=== PATIENT | female | born 1940 | race Caucasian/White ===

== ENCOUNTER 2022-02-26 02:25 | Emergency (ER) | payer OTHER ==
[~2022-02-26] VITALS: Ht 152.4 cm; Wt 63.5 kg
[~2022-02-26 02:25] MED LIST: AMBIEN PAK5 MG; ARICEPT10 MG; DIGOXIN125 MCG; ENALAPRIL MALEA10 MG; GEMFIBROZIL600 MG; LANTUS100 U/ML; LEVOXYL125 MCG; NABUMETONE500 MG PO; OMEPRAZOLE20 MG; SIMVASTATIN40 MG
== END 2022-02-26 02:46 | disposition home or self-care (01) ==
LOC: ER 02:25
DX: L29.9 Pruritus, unspecified (principal); E11.9 Type 2 diabetes mellitus without complications; Z79.4 Long term (current) use of insulin

== ENCOUNTER 2022-06-15 00:47 | Inpatient (IN) | payer OTHER ==
[~2022-06-15] VITALS: Ht 149.9 cm; Wt 54.4 kg
[~2022-06-15 00:47] MED LIST changes: +CELEBREX100 MG PO
--- NOTE | 2022-06-15 01:30 | NUR ---
PTE VERBALIZA QUE GERMAIN ESTADO CON MAREOS DESDE DOREEN. PTE SE OBSERVA CON MAREOS. PTE SE LE REALIZA EKG. PTE SE OBSERVA A/O X4.
--- NOTE | 2022-06-15 03:29 | NUR ---
FEMINA ALERTA Y ORIENTADA X3 EVALUADA POR DR BOBBI [place]AN[place] [facility]. SE EDUCA A PTE SOBRE PROCEDIMIENTO Y REFIERE ENTENDER. SE COLECTAN MUESTRAS DE DANIEL BAJO MEDIDAS ASEPTICAS Y SE ADMINISTRA MEDICAMENTO.
--- NOTE | 2022-06-15 08:24 | NUR ---
SE RECIBE PTE ALERTA Y ORIENTADA EN BASHIR BAJA CON BARANDAS ELEVADAS POR SEGURIDAD. SE OBSERVA CON BUEN PATRON RESPIRATORIO. PTE CON H/L PATENTE. AREA DE VENOPUNCION YASMIN DE EDEMA Y ERITEMA. PEND RE-EVALUACION
[2022-06-20] MEDS ORDERED: CLOPIDOGREL BIS75 MG PO (15:14)
[2022-06-20] MEDS ORDERED: ARICEPT10 MG PO (15:14)
[2022-06-20] MEDS ORDERED: CARVEDILOL12.5 MG PO (15:15)
[2022-06-20] MEDS ORDERED: LIPITOR40 MG PO (15:15)
[2022-06-20] MEDS ORDERED: NIFEDIPINE ER60 MG PO (15:16)
[2022-06-20] MEDS ORDERED: LOSARTAN POTAS100 MG PO (15:16)
[2022-06-20] MEDS ORDERED: LEVOTHYROXINE125 MCG PO (15:17)
[2022-06-20] MEDS ORDERED: PANTOPRAZOLE SO40 MG PO (15:17)
[2022-06-20] MEDS ORDERED: LANOXIN125 MCG PO (15:19)
== END 2022-06-20 17:20 | disposition home or self-care (01) | DRG 77 ==
LOC: ER 00:47 → MEDJ 13:53
PROVIDERS: ADMIT Internal Medicine; ATTEND Internal Medicine
PROC: BW28ZZZ Computerized Tomography (CT Scan) of Head (ICD-10-PCS; principal; 2022-06-15)
PROC: BW38ZZZ Magnetic Resonance Imaging (MRI) of Head (ICD-10-PCS; 2022-06-15)
PROC: B24BZZZ Ultrasonography of Heart with Aorta (ICD-10-PCS; 2022-06-15)
PROC: B348ZZZ Ultrasonography of Bilateral Internal Carotid Arteries (ICD-10-PCS; 2022-06-15)
PROC: 4A12X4Z Monitoring of Cardiac Electrical Activity, External Approach (ICD-10-PCS; 2022-06-16)
DX: I67.4 Hypertensive encephalopathy (principal); I50.31 Acute diastolic (congestive) heart failure; N17.8 Other acute kidney failure; I13.0 Hypertensive heart and chronic kidney disease with heart failure and stage 1 through stage 4 chronic kidney disease, or unspecified chronic kidney disease; D64.9 Anemia, unspecified; E03.9 Hypothyroidism, unspecified; Z79.4 Long term (current) use of insulin; H81.90 Unspecified disorder of vestibular function, unspecified ear; Z20.822 Contact with and (suspected) exposure to COVID-19; E11.22 Type 2 diabetes mellitus with diabetic chronic kidney disease; N18.9 Chronic kidney disease, unspecified; G62.89 Other specified polyneuropathies
CPT/HCPCS: 70551

== ENCOUNTER 2023-02-16 13:41 | Emergency (ER) | payer OTHER ==
[~2023-02-16] VITALS: Ht 149.9 cm; Wt 57.2 kg
[~2023-02-16 13:41] MED LIST changes: +ARICEPT10 MG PO; +CARVEDILOL12.5 MG PO; +CLOPIDOGREL BIS75 MG PO; +LANOXIN125 MCG PO; +LEVOTHYROXINE125 MCG PO; +LIPITOR40 MG PO; +LOSARTAN POTAS100 MG PO; +NIFEDIPINE ER60 MG PO; +PANTOPRAZOLE SO40 MG PO
[2023-02-16] MEDS ORDERED: FOLIC ACID20 MG PO (14:16)
[2023-02-16] MEDS ORDERED: IPRAT-ALBUT 0.5-3 ML IH (18:49)
[2023-02-16] MEDS ORDERED: LASIX20 MG PO (18:49)
== END 2023-02-16 18:52 | disposition home or self-care (01) ==
LOC: ER 13:42
PROVIDERS: General Practice
DX: J44.9 Chronic obstructive pulmonary disease, unspecified (principal); E11.9 Type 2 diabetes mellitus without complications; Z79.4 Long term (current) use of insulin; I10 Essential (primary) hypertension; E03.9 Hypothyroidism, unspecified; Z88.2 Allergy status to sulfonamides; Z20.822 Contact with and (suspected) exposure to COVID-19
CPT/HCPCS: 36415; 71045; 82803; 93005; 94640; 96365; 96366; 99284; J2930; J3490

== ENCOUNTER 2023-12-05 16:37 | Inpatient (IN) | payer OTHER ==
[~2023-12-05] VITALS: Ht 149.9 cm; Wt 56.7 kg
[~2023-12-05 16:37] MED LIST changes: +FOLIC ACID20 MG PO; +IPRAT-ALBUT 0.5-3 ML IH; +LASIX20 MG PO
--- NOTE | 2023-12-05 17:09 | NUR ---
PACIENTE ALERTA Y ORIENTADA X 3. REFIERE 3 HERNANDEZ CON FATIGA, CANSANCIO Y MOLESTIA PARA RESPIRAR.
[2023-12-05] MEDS ORDERED: HUMULIN N100 UNIT/2 (17:20)
[2023-12-05] MEDS ORDERED: NIFEDIPINE20 MG (17:21)
[2023-12-05] MEDS ORDERED: OMEPRAZOLE MAGN20 MG (17:21)
[2023-12-05] MEDS ORDERED: NAMENDA XR7 MG PO (17:22)
[2023-12-05] MEDS ORDERED: LIPOFEN150 MG (17:22)
[2023-12-05] MEDS ORDERED: IPRATROPIUM/ALBUTEROL SULFATE 3 ML AMPUL.NEB IH SCH (18:37)
[2023-12-05] MEDS ORDERED: FUROsemide 20 MG TABLET PO STA (18:37)
[2023-12-05] MEDS ORDERED: FUROsemide 20 MG TABLET PO ONE (18:48)
--- NOTE | 2023-12-05 18:58 | NUR ---
PACIENTE EVALUADO POR DR.OCHOA [place]IEN [place] [facility], RN MORLAJIE EDUCA ACERCA DEL MISMO Y REFIRE ENTENDER. SE COLECTAN MUESTRAS DE LABORATORIO MEDIANTE MEDIDAS ASEPTICAS. SE ADMINISTRAN MEDICAMENTOS JUSTYN ORDEN MEDICA
[2023-12-05 19:18] LABS: HEMATOCRIT 30.2 % (36.0-45.00); HEMOGLOBIN 10.1 g/dL (12.0-15.00); MEAN CELL VOLUME 91.4 fL (80.00-100.00); MEAN CORPUSCULAR HEMOGLOBIN 30.7 pg (27.00-32.0); MEAN CORPUSCULAR HGB CONC 33.6 g/dl (32.0-36.0); PLATELET COUNT 231 K/uL (150-450); RED CELL DISTRIBUTION WIDTH 13.5 % (11.5-14.5)
[2023-12-05] MEDS ORDERED: IPRATROPIUM/ALBUTEROL SULFATE 3 ML AMPUL.NEB IH ONE (19:43)
[2023-12-05 19:44] LABS: ALBUMIN 3.3 gm/dL (3.4-5.0); BILIRUBIN TOTAL 0.3 mg/dL (0.3-1.2); CALCIUM 10.7 mg/dL (8.5-10.1); CREATININE SERUM 1.7 mg/dL (0.55-1.02); GFR 28.56; POTASSIUM 4.63 mEq/L (3.5-5.1); TOTAL PROTEIN 7.3 gm/dL (6.4-8.2)
[2023-12-05 20:02] LABS: ABG PH 7.398 (7.35-7.45); ABG PO2 71.1 mmHg (80-100); ABG pCO2 35.8 mmHg (35-45); BASE EXCESS -2.6 mmol/l; BICARBONATE 21.6 mmol/l (23-25); SaO2 93.9 %; Tco2 22.7 mmol/l
[2023-12-05 20:03] LABS: allen test SATISFACTORY; o2 21 %; puncture site RADIAL RIGHT
[2023-12-05] MEDS ORDERED: NITROGLYCERIN IN 5 % DEXTROSE 250 ML IV SCH (22:55)
[2023-12-05] MEDS ORDERED: FUROsemide 20 MG/2 ML VIAL IV SCH (22:55)
[2023-12-05] MEDS ORDERED: ACETAMINOPHEN 500 MG GEL..CAP PO PRN (23:00)
[2023-12-05] MEDS ORDERED: IPRATROPIUM BROMIDE 0.5 MG/2.5 ML AMPUL.NEB IH ONE (23:49)
[2023-12-06] MEDS ORDERED: IPRATROPIUM BROMIDE 0.5 MG/2.5 ML AMPUL.NEB IH SCH (01:00)
[2023-12-06] MEDS ORDERED: NITROGLYCERIN IN 5 % DEXTROSE 50 MG/250 ML BOTTLE IV ONE (01:56)
[2023-12-06] MEDS ORDERED: FUROsemide 20 MG/2 ML VIAL ONE (01:56)
[2023-12-06 03:04] LABS: D DIMER 1.93 MG/L; PARTIAL THROMBOPLASTIN TIME 23.9 SECONDS (22.0-34.0)
[2023-12-06 03:05] LABS: MAGNESIUM 2.1 mg/dL (1.8-2.4); PHOSPHOROUS 3.4 mg/dL (2.5-4.9)
[2023-12-06 03:51] LABS: INR 0.99; PROTHROMBIN TIME 10.4 SECONDS (9.0-11.5)
[2023-12-06] MEDS ORDERED: NITROGLYCERIN IN 5 % DEXTROSE 250 ML IV SCH (06:15)
[2023-12-06] MEDS ORDERED: IPRATROPIUM BROMIDE 0.5 MG/2.5 ML AMPUL.NEB IH ONE (08:42)
[2023-12-06] MEDS ORDERED: ENOXAPARIN SODIUM 40 MG/0.4 ML SYRINGE SUBCUTANEO SCH (09:00)
[2023-12-06] MEDS ORDERED: FAMOTIDINE/PF 20 MG in 0.9 % SODIUM CHLORIDE 8 ML IV PUSH SCH (09:00)
[2023-12-06] MEDS ORDERED: ATORVASTATIN CALCIUM 40 MG TABLET PO SCH (09:00)
[2023-12-06] MEDS ORDERED: MEMANTINE HCL 10 MG TABLET PO SCH (09:00)
[2023-12-06] MEDS ORDERED: INSULIN LISPRO 1,000 UNIT/10 ML UNITS SUBCUTANEO PRN (17:00)
[2023-12-06] MEDS ORDERED: DEXTROSE 50 % IN WATER 0.5 G/ML VIAL IV PRN (17:00)
[2023-12-06] MEDS ORDERED: DONEPEZIL HCL 10 MG TABLET PO SCH (17:00)
[2023-12-06] MEDS ORDERED: INSULIN LISPRO 1,000 UNIT/10 ML UNITS SUBCUTANEO ONE (18:21)
[2023-12-07 04:51] LABS: URINE BACTERIA 26.4 uL (0.0-1933); URINE WBC 12.3 uL (0.0-23.2)
[2023-12-07 04:55] LABS: PH,URINE 5.5 (5.0-8.0); URINE APPEARANCE Clear; URINE BILIRRUBIN Negative (NEGATIVE); URINE BLOOD Negative; URINE COLOR Yellow; URINE GLUCOSE Negative (NEGATIVE); URINE LEUKOCYTE Negative; URINE NITRATE Negative; URINE PROTEIN 30 (NEGATIVE); URINE UROBILINOGEN 0.2 E.U./dl
[2023-12-07 04:58] LABS: URINE EPITHELIAL CELLS 0.7 uL (0.0-38.8); URINE RBC 0.3 uL (0.0-20.8)
[2023-12-07] MEDS ORDERED: QUETIAPINE FUMARATE 25 MG TABLET PO STA (06:27)
[2023-12-07] MEDS ORDERED: ENOXAPARIN SODIUM 30 MG/0.3 ML SYRINGE SUBCUTANEO SCH (09:00)
[2023-12-07] MEDS ORDERED: FOLIC ACID 1 MG TABLET PO SCH (09:00)
[2023-12-07] MEDS ORDERED: CARVEDILOL 12.5 MG TABLET PO SCH (09:00)
[2023-12-07] MEDS ORDERED: LOSARTAN POTASSIUM 100 MG TABLET PO SCH (09:00)
[2023-12-07] MEDS ORDERED: PANTOPRAZOLE SODIUM 40 MG TABLET.DR PO SCH (09:00)
[2023-12-07] MEDS ORDERED: INSULIN NPH HUM/REG INSULIN HM 1,000 UNIT/10 ML UNITS SUBCUTANEO STA (09:32)
[2023-12-07] MEDS ORDERED: HALOPERIDOL LACTATE 5 MG/ML AMPUL IM PRN (13:30)
[2023-12-07] MEDS ORDERED: SODIUM CHLORIDE 0.45 % 1,000 ML IV SCH (13:45)
[2023-12-07] MEDS ORDERED: INSULIN NPH HUM/REG INSULIN HM 1,000 UNIT/10 ML UNITS SUBCUTANEO SCH (17:00)
[2023-12-07] MEDS ORDERED: DONEPEZIL HCL 10 MG TABLET PO SCH (17:00)
[2023-12-08] MEDS ORDERED: INSULIN NPH HUM/REG INSULIN HM 1,000 UNIT/10 ML UNITS SUBCUTANEO SCH (08:00)
[2023-12-08 08:02] LABS: BILIRUBIN TOTAL 0.44 mg/dL (0.3-1.2); CALCIUM 9.8 mg/dL (8.5-10.1); CREATININE SERUM 2.75 mg/dL (0.55-1.02); GFR 16.4; POTASSIUM 3.8 mEq/L (3.5-5.1)
[2023-12-08 08:19] LABS: HEMATOCRIT 26.5 % (36.0-45.00); HEMOGLOBIN 9.1 g/dL (12.0-15.00); MEAN CELL VOLUME 90.9 fL (80.00-100.00); MEAN CORPUSCULAR HEMOGLOBIN 31.1 pg (27.00-32.0); MEAN CORPUSCULAR HGB CONC 34.4 g/dl (32.0-36.0); PLATELET COUNT 177 K/uL (150-450); RED BLOOD COUNT 2.92 M/uL (4.00-6.00); RED CELL DISTRIBUTION WIDTH 13.2 % (11.5-14.5)
[2023-12-08] MEDS ORDERED: AMLODIPINE BESYLATE 5 MG TABLET PO SCH (12:00)
[2023-12-09] MEDS ORDERED: LEVOTHYROXINE SODIUM 100 MCG TABLET PO SCH (06:00)
[2023-12-09] MEDS ORDERED: FUROsemide 20 MG/2 ML VIAL IV SCH (12:00)
[2023-12-10 07:17] LABS: ALBUMIN 2.6 gm/dL (3.4-5.0); BILIRUBIN TOTAL 0.52 mg/dL (0.3-1.2); CALCIUM 9.8 mg/dL (8.5-10.1); CREATININE SERUM 2.02 mg/dL (0.55-1.02); GFR 23.41; GLOBULINA 3.3 G/DL (2.4-3.5); POTASSIUM 3.94 mEq/L (3.5-5.1); TOTAL PROTEIN 5.9 gm/dL (6.4-8.2)
== END 2023-12-11 04:41 | disposition home or self-care (01) | DRG 292 ==
LOC: ER 16:38 → SEC-K 22:59 → MEDI 12-06 18:53
PROVIDERS: General Practice; Internal Medicine Nephrology; ADMIT Specialist; ATTEND Specialist
PROC: B24BZZZ Ultrasonography of Heart with Aorta (ICD-10-PCS; 2023-12-05)
PROC: 4A12X4Z Monitoring of Cardiac Electrical Activity, External Approach (ICD-10-PCS; principal; 2023-12-06)
DX: I13.0 Hypertensive heart and chronic kidney disease with heart failure and stage 1 through stage 4 chronic kidney disease, or unspecified chronic kidney disease (principal); F02.82 Dementia in other diseases classified elsewhere, unspecified severity, with psychotic disturbance; I50.30 Unspecified diastolic (congestive) heart failure; J44.1 Chronic obstructive pulmonary disease with (acute) exacerbation; N17.9 Acute kidney failure, unspecified; I50.9 Heart failure, unspecified; E78.5 Hyperlipidemia, unspecified; N18.9 Chronic kidney disease, unspecified; E11.65 Type 2 diabetes mellitus with hyperglycemia; Z79.4 Long term (current) use of insulin; E11.22 Type 2 diabetes mellitus with diabetic chronic kidney disease; R41.82 Altered mental status, unspecified; D63.1 Anemia in chronic kidney disease; G30.9 Alzheimer's disease, unspecified; E03.9 Hypothyroidism, unspecified

== ENCOUNTER 2024-03-20 13:49 | Emergency (ER) | payer OTHER ==
[~2024-03-20] VITALS: Ht 152.4 cm; Wt 57.2 kg
[~2024-03-20 13:49] MED LIST changes: +HUMULIN N100 UNIT/2; +LIPOFEN150 MG; +NAMENDA XR7 MG PO; +NIFEDIPINE20 MG; +OMEPRAZOLE MAGN20 MG
[2024-03-20 15:31] LABS: HEMATOCRIT 31.5 % (36.0-45.00); HEMOGLOBIN 10.3 g/dL (12.0-15.00); MEAN CELL VOLUME 87.2 fL (80.00-100.00); MEAN CORPUSCULAR HEMOGLOBIN 28.6 pg (27.00-32.0); MEAN CORPUSCULAR HGB CONC 32.8 g/dl (32.0-36.0); PLATELET COUNT 208 K/uL (150-450); RED BLOOD COUNT 3.61 M/uL (4.00-6.00); RED CELL DISTRIBUTION WIDTH 14.8 % (11.5-14.5)
[2024-03-20 15:38] LABS: PARTIAL THROMBOPLASTIN TIME 24.9 SECONDS (22.0-34.0); PROTHROMBIN TIME 10.9 SECONDS (9.0-11.5)
[2024-03-20 15:44] LABS: CALCIUM 10.8 mg/dL (8.5-10.1); CREATININE SERUM 2.06 mg/dL (0.55-1.02); GFR 22.89; POTASSIUM 4.44 mEq/L (3.5-5.1)
== END 2024-03-20 16:57 | disposition home or self-care (01) ==
LOC: ER 13:51
PROVIDERS: Emergency Medicine
DX: R07.89 Other chest pain (principal); Z20.822 Contact with and (suspected) exposure to COVID-19; Z88.2 Allergy status to sulfonamides; I10 Essential (primary) hypertension; E11.9 Type 2 diabetes mellitus without complications; Z79.4 Long term (current) use of insulin

== ENCOUNTER 2024-03-24 11:10 | Inpatient (IN) | payer OTHER ==
[~2024-03-24] VITALS: Ht 149.9 cm; Wt 54.4 kg
[2024-03-24 11:57] LABS: HEMATOCRIT 27.6 % (36.0-45.00); HEMOGLOBIN 9.2 g/dL (12.0-15.00); MEAN CELL VOLUME 88.4 fL (80.00-100.00); MEAN CORPUSCULAR HEMOGLOBIN 29.6 pg (27.00-32.0); MEAN CORPUSCULAR HGB CONC 33.5 g/dl (32.0-36.0); PLATELET COUNT 268 K/uL (150-450); RED BLOOD COUNT 3.13 M/uL (4.00-6.00); RED CELL DISTRIBUTION WIDTH 14.5 % (11.5-14.5)
[2024-03-24 12:08] LABS: CALCIUM 10.6 mg/dL (8.5-10.1); CREATININE SERUM 1.97 mg/dL (0.55-1.02); GFR 24.1; POTASSIUM 4.44 mEq/L (3.5-5.1)
[2024-03-24] MEDS ORDERED: 0.9 % SODIUM CHLORIDE 1,000 ML IV SCH ×2 (13:15→18:45)
[2024-03-24 17:35] LABS: PH,URINE 6.5 (5.0-8.0); URINE APPEARANCE Clear; URINE BILIRRUBIN Negative (NEGATIVE); URINE BLOOD Negative; URINE COLOR Yellow; URINE KETONE Negative (NEGATIVE); URINE LEUKOCYTE Negative; URINE NITRATE Negative; URINE UROBILINOGEN 0.2 E.U./dl
[2024-03-24 17:39] LABS: URINE WBC 3.3 uL (0.0-23.2)
[2024-03-24 17:57] LABS: URINE EPITHELIAL CELLS 0.7 uL (0.0-38.8); URINE GLUCOSE >=1000 MG/DL (NEGATIVE); URINE PROTEIN 100 (NEGATIVE); URINE RBC 1.9 uL (0.0-20.8)
[2024-03-24] MEDS ORDERED: ASPIRIN 81 MG TAB.CHEW PO SCH (18:53)
[2024-03-24] MEDS ORDERED: ACETAMINOPHEN 500 MG GEL..CAP PO PRN (19:00)
[2024-03-24 20:33] LABS: MAGNESIUM 2.4 mg/dL (1.8-2.4); PHOSPHOROUS 3.1 mg/dL (2.5-4.9)
[2024-03-24 20:59] LABS: INR 0.98; PARTIAL THROMBOPLASTIN TIME 23.3 SECONDS (22.0-34.0); PROTHROMBIN TIME 10.7 SECONDS (9.0-11.5)
[2024-03-24] MEDS ORDERED: CARVEDILOL 12.5 MG TABLET PO SCH (21:00)
[2024-03-24 21:07] VITALS: BP 127/95
[2024-03-24 21:09] VITALS: O2SAT 98
[2024-03-24 22:40] VITALS: BP 155/78
[2024-03-25] VITALS (7 sets, daily range): BP systolic 128–185; BP diastolic 66–89; O2SAT 95–99
[2024-03-25] MEDS ORDERED: LEVOTHYROXINE SODIUM 125 MCG TABLET PO SCH (06:00)
[2024-03-25] MEDS ORDERED: MEMANTINE HCL 5 MG TABLET PO SCH (09:00)
[2024-03-25] MEDS ORDERED: LOSARTAN POTASSIUM 100 MG TABLET PO SCH (09:00)
[2024-03-25] MEDS ORDERED: FAMOTIDINE/PF 20 MG in 0.9 % SODIUM CHLORIDE 8 ML IV PUSH SCH (09:00)
[2024-03-25] MEDS ORDERED: NIFEDIPINE 30 MG TAB.SA.OSM PO SCH (09:00)
[2024-03-25] MEDS ORDERED: DONEPEZIL HCL 10 MG TABLET PO SCH (17:00)
[2024-03-25] MEDS ORDERED: hydrALAZINE HCL 20 MG VIAL IV PRN (17:45)
[2024-03-25] MEDS ORDERED: LORazepam 0.5 MG TABLET PO PRN (19:30)
[2024-03-26] VITALS (7 sets, daily range): BP systolic 133–148; BP diastolic 60–67; O2SAT 93–98
[2024-03-26 08:16] LABS: HEMATOCRIT 27.7 % (36.0-45.00); HEMOGLOBIN 9.1 g/dL (12.0-15.00); MEAN CELL VOLUME 88.7 fL (80.00-100.00); MEAN CORPUSCULAR HEMOGLOBIN 29.2 pg (27.00-32.0); PLATELET COUNT 269 K/uL (150-450); RED BLOOD COUNT 3.13 M/uL (4.00-6.00); RED CELL DISTRIBUTION WIDTH 14.8 % (11.5-14.5)
[2024-03-26] MEDS ORDERED: CLOPIDOGREL BISULFATE 75 MG TABLET PO SCH (09:00)
[2024-03-26 09:05] LABS: ALBUMIN 2.4 gm/dL (3.4-5.0); BILIRUBIN TOTAL 0.44 mg/dL (0.3-1.2); CREATININE SERUM 1.49 mg/dL (0.55-1.02); GFR 33.26; GLOBULINA 3.4 G/DL (2.4-3.5); POTASSIUM 4.75 mEq/L (3.5-5.1); TOTAL PROTEIN 5.8 gm/dL (6.4-8.2)
[2024-03-27] VITALS (7 sets, daily range): BP systolic 133–145; BP diastolic 66–76; O2SAT 93–98
[2024-03-28] VITALS (8 sets, daily range): BP systolic 121–154; BP diastolic 65–74; O2SAT 94–97
[2024-03-28] MEDS ORDERED: RINGERS SOLUTION,LACTATED 1,000 ML IV SCH (14:00)
[2024-03-29 01:05] VITALS: O2SAT 96
[2024-03-29 02:28] VITALS: BP 109/68; O2SAT 100
[2024-03-29 05:47] LABS: HEMATOCRIT 26.1 % (36.0-45.00); MEAN CELL VOLUME 86.8 fL (80.00-100.00); MEAN CORPUSCULAR HGB CONC 34.3 g/dl (32.0-36.0); PLATELET COUNT 287 K/uL (150-450); RED BLOOD COUNT 3.01 M/uL (4.00-6.00); RED CELL DISTRIBUTION WIDTH 14.6 % (11.5-14.5)
[2024-03-29 05:53] VITALS: O2SAT 97
[2024-03-29 06:23] LABS: ALBUMIN 2.4 gm/dL (3.4-5.0); BILIRUBIN TOTAL 0.35 mg/dL (0.3-1.2); CALCIUM 9.9 mg/dL (8.5-10.1); CREATININE SERUM 1.51 mg/dL (0.55-1.02); GFR 32.75; GLOBULINA 3.5 G/DL (2.4-3.5); POTASSIUM 4.42 mEq/L (3.5-5.1); TOTAL PROTEIN 5.9 gm/dL (6.4-8.2)
[2024-03-29 06:33] LABS: MEAN CORPUSCULAR HEMOGLOBIN 29.9 pg (27.00-32.0)
[2024-03-29 09:10] VITALS: BP 119/70; O2SAT 97
== END 2024-03-29 13:18 | disposition designated cancer center or children's hospital (05) | DRG 65 ==
LOC: ER 11:10 → MEDJ 19:25 → MEDI 03-28 14:01
PROVIDERS: Emergency Medicine; General Practice; Internal Medicine Nephrology; ADMIT Internal Medicine; ATTEND Internal Medicine
PROC: 4A12X4Z Monitoring of Cardiac Electrical Activity, External Approach (ICD-10-PCS; principal; 2024-03-24)
PROC: B030ZZZ Magnetic Resonance Imaging (MRI) of Brain (ICD-10-PCS; 2024-03-24)
PROC: B020ZZZ Computerized Tomography (CT Scan) of Brain (ICD-10-PCS; 2024-03-24)
PROC: B246ZZZ Ultrasonography of Right and Left Heart (ICD-10-PCS; 2024-03-24)
PROC: B345ZZZ Ultrasonography of Bilateral Common Carotid Arteries (ICD-10-PCS; 2024-03-24)
PROC: B348ZZZ Ultrasonography of Bilateral Internal Carotid Arteries (ICD-10-PCS; 2024-03-24)
DX: I63.81 Other cerebral infarction due to occlusion or stenosis of small artery (principal); F02.811 Dementia in other diseases classified elsewhere, unspecified severity, with agitation; G81.91 Hemiplegia, unspecified affecting right dominant side; N17.9 Acute kidney failure, unspecified; G30.8 Other Alzheimer's disease; I12.9 Hypertensive chronic kidney disease with stage 1 through stage 4 chronic kidney disease, or unspecified chronic kidney disease; E11.22 Type 2 diabetes mellitus with diabetic chronic kidney disease; N18.9 Chronic kidney disease, unspecified; E03.9 Hypothyroidism, unspecified; Z88.2 Allergy status to sulfonamides; Z74.01 Bed confinement status; Z79.4 Long term (current) use of insulin
CPT/HCPCS: 70544

== ENCOUNTER 2024-04-23 14:31 | Inpatient (IN) | payer OTHER ==
[~2024-04-23] VITALS: Ht 152.4 cm; Wt 149.7 kg
[2024-04-23] MEDS ORDERED: CLOPIDOGREL BIS75 MG PO (14:56)
[2024-04-23] MEDS ORDERED: 0.9 % SODIUM CHLORIDE 1,000 ML IV STA (15:51)
[2024-04-23] MEDS ORDERED: PIPERACILLIN/TAZOBACTAM SODIUM 3.375 GM VIAL IV ONE (17:00)
[2024-04-23 17:07] LABS: INR 1.08; PROTHROMBIN TIME 11.7 SECONDS (9.0-11.5)
[2024-04-23 17:17] LABS: ALBUMIN 2.3 gm/dL (3.4-5.0); BILIRUBIN TOTAL 0.41 mg/dL (0.3-1.2); BILIRUBIN,CONJUGATED 0.16 mg/dL (0.0-0.2); BILIRUBIN,UNCONJUGATED 0.25 mg/dL (0.0-0.6); CALCIUM 9.8 mg/dL (8.5-10.1); CREATININE SERUM 1.84 mg/dL (0.55-1.02); GFR 26.07; HEMATOCRIT 26.8 % (36.0-45.00); HEMOGLOBIN 8.8 g/dL (12.0-15.00); MEAN CELL VOLUME 85.9 fL (80.00-100.00); MEAN CORPUSCULAR HEMOGLOBIN 28.2 pg (27.00-32.0); MEAN CORPUSCULAR HGB CONC 32.8 g/dl (32.0-36.0); PLATELET COUNT 181 K/uL (150-450); POTASSIUM 4.75 mEq/L (3.5-5.1); RED BLOOD COUNT 3.12 M/uL (4.00-6.00); RED CELL DISTRIBUTION WIDTH 15.5 % (11.5-14.5); TOTAL PROTEIN 6.3 gm/dL (6.4-8.2)
[2024-04-23 17:34] LABS: ABG PH 7.374 (7.35-7.45); ABG PO2 192.7 mmHg (80-100); ABG pCO2 27.4 mmHg (35-45); BASE EXCESS -7.8 mmol/l; BICARBONATE 15.6 mmol/l (23-25); SaO2 99.6 %; Tco2 16.5 mmol/l
[2024-04-23 17:35] LABS: allen test SATISFACTORY; puncture site RADIAL RIGHT
[2024-04-23 17:38] LABS: FIBRINOGEN 467 mg/dL (187.0-446.0); PARTIAL THROMBOPLASTIN TIME 25.4 SECONDS (22.0-34.0)
[2024-04-23 17:40] LABS: URINE APPEARANCE Cloudy; URINE BILIRRUBIN Negative (NEGATIVE); URINE BLOOD Negative; URINE COLOR Yellow; URINE GLUCOSE Negative (NEGATIVE); URINE KETONE Negative (NEGATIVE); URINE LEUKOCYTE Trace; URINE NITRATE Negative; URINE UROBILINOGEN 0.2 E.U./dl
[2024-04-23 17:40] LABS: D DIMER > 35.20 MG/L
[2024-04-23 17:40] LABS: o2 32 %
[2024-04-23 17:43] LABS: URINE WBC 14.6 uL (0.0-23.2)
[2024-04-23 17:59] LABS: URINE BACTERIA > 9821.5 uL (0.0-1933); URINE CAST 0.76 uL (0.0-1.40); URINE PROTEIN 100 (NEGATIVE); URINE RBC 1.3 uL (0.0-20.8)
[2024-04-23] MEDS ORDERED: FUROsemide 20 MG/2 ML VIAL IV SCH (23:22)
[2024-04-23] MEDS ORDERED: CEFTRIAXONE SODIUM 2,000 MG in 0.9 % SODIUM CHLORIDE 100 ML IV SCH (23:26)
[2024-04-23] MEDS ORDERED: INSULIN LISPRO 1,000 UNIT/10 ML UNITS SUBCUTANEO PRN (23:30)
[2024-04-23] MEDS ORDERED: DEXTROSE 50 % IN WATER 0.5 G/ML DISP.SYRIN IV PRN (23:30)
[2024-04-23] MEDS ORDERED: ACETAMINOPHEN 500 MG GEL..CAP PO PRN (23:30)
[2024-04-24 02:13] VITALS: BP 114/64; O2SAT 97
[2024-04-24 05:14] VITALS: BP 103/64; O2SAT 97
[2024-04-24] MEDS ORDERED: LEVOTHYROXINE SODIUM 125 MCG TABLET PO SCH (06:00)
[2024-04-24] MEDS ORDERED: FAMOTIDINE/PF 20 MG in 0.9 % SODIUM CHLORIDE 8 ML IV PUSH SCH (09:00)
[2024-04-24] MEDS ORDERED: CARVEDILOL 12.5 MG TABLET PO SCH (09:00)
[2024-04-24] MEDS ORDERED: CLOPIDOGREL BISULFATE 75 MG TABLET PO SCH (09:00)
[2024-04-24] MEDS ORDERED: ENOXAPARIN SODIUM 40 MG/0.4 ML SYRINGE SUBCUTANEO SCH (09:00)
[2024-04-24] MEDS ORDERED: LOSARTAN POTASSIUM 25 MG TABLET PO SCH (09:00)
[2024-04-24 09:56] VITALS: BP 108/70; O2SAT 97
[2024-04-24] MEDS ORDERED: 0.9 % SODIUM CHLORIDE 1,000 ML IV SCH (12:00)
[2024-04-24 14:47] LABS: PARTIAL THROMBOPLASTIN TIME 21.5 SECONDS (22.0-34.0); PROTHROMBIN TIME 10.9 SECONDS (9.0-11.5)
[2024-04-24] MEDS ORDERED: DONEPEZIL HCL 10 MG TABLET PO SCH (17:00)
[2024-04-24 19:28] VITALS: BP 127/73; O2SAT 100
[2024-04-24] MEDS ORDERED: ENOXAPARIN SODIUM 60 MG/0.6 ML SYRINGE SUBCUTANEO SCH (21:00)
[2024-04-25 01:18] VITALS: BP 122/66; O2SAT 99
[2024-04-25] MEDS ORDERED: VITAMIN B COMPLEX/LYSINE 1 ML ML PO SCH (09:00)
[2024-04-25 09:49] VITALS: BP 140/69; O2SAT 95
[2024-04-25] MEDS ORDERED: SODIUM CHLORIDE 0.45 % 1,000 ML IV SCH (14:45)
[2024-04-25 15:19] VITALS: O2SAT 100
[2024-04-25] MEDS ORDERED: ASPIRIN 81 MG TAB.CHEW PO SCH (17:00)
[2024-04-25] MEDS ORDERED: SIMVASTATIN 40 MG TABLET PO SCH (17:00)
[2024-04-25] MEDS ORDERED: LEVALBUTEROL HCL 1.25 MG/3 ML SOLUTION IH SCH (17:00)
[2024-04-25] MEDS ORDERED: SUCRALFATE 1 G TABLET PO SCH (17:00)
[2024-04-25] MEDS ORDERED: LOSARTAN/HYDROCHLOROTHIAZIDE 1 UDTAB TABLET PO SCH (17:00)
[2024-04-25 17:08] VITALS: O2SAT 100
[2024-04-25 17:57] VITALS: BP 144/78; O2SAT 100
[2024-04-25 19:32] VITALS: O2SAT 100
[2024-04-25 20:17] LABS: ABG PH 7.423 (7.35-7.45); ABG PO2 145.3 mmHg (80-100); ABG pCO2 25.7 mmHg (35-45); BASE EXCESS -6.1 mmol/l; BICARBONATE 16.4 mmol/l (23-25); SaO2 99.2 %; Tco2 17.2 mmol/l
[2024-04-25 20:18] LABS: allen test SATISFACTORY; o2 52 %; puncture site RADIAL RIGHT
[2024-04-26] VITALS (7 sets, daily range): BP systolic 106–151; BP diastolic 68–88; O2SAT 97–100
[2024-04-26 08:24] LABS: ALBUMIN 2.2 gm/dL (3.4-5.0); CALCIUM 9.8 mg/dL (8.5-10.1); CREATININE SERUM 1.42 mg/dL (0.55-1.02); GFR 35.16; MAGNESIUM 1.9 mg/dL (1.8-2.4); PHOSPHOROUS 2.7 mg/dL (2.5-4.9); POTASSIUM 4.02 mEq/L (3.5-5.1)
[2024-04-26 08:40] LABS: HEMATOCRIT 26.4 % (36.0-45.00); MEAN CELL VOLUME 83.1 fL (80.00-100.00); MEAN CORPUSCULAR HEMOGLOBIN 28.2 pg (27.00-32.0); MEAN CORPUSCULAR HGB CONC 33.9 g/dl (32.0-36.0); PLATELET COUNT 217 K/uL (150-450); RED BLOOD COUNT 3.18 M/uL (4.00-6.00); RED CELL DISTRIBUTION WIDTH 15.5 % (11.5-14.5)
[2024-04-26] MEDS ORDERED: SOD FERRIC GLUC COMPLX/SUCROSE 125 MG in 0.9 % SODIUM CHLORIDE 100 ML IV SCH (09:00)
[2024-04-26] MEDS ORDERED: Cyanocobalamin/Mecobalamin 1 TAB.SL SL SCH (09:00)
[2024-04-27] VITALS (9 sets, daily range): BP systolic 118–150; BP diastolic 70–75; O2SAT 84–99
[2024-04-27 13:56] LABS: ABG PH 7.426 (7.35-7.45); ABG PO2 142.6 mmHg (80-100); ABG pCO2 27.2 mmHg (35-45)
[2024-04-27 13:57] LABS: BASE EXCESS -5.2 mmol/l; BICARBONATE 17.5 mmol/l (23-25); SaO2 99.2 %; Tco2 18.3 mmol/l; allen test SATISFACTORY; o2 36 %; puncture site RADIAL RIGHT
[2024-04-28] VITALS (8 sets, daily range): BP systolic 120–147; BP diastolic 60–85; O2SAT 96–100
[2024-04-28 06:55] LABS: ALBUMIN 2.1 gm/dL (3.4-5.0); CALCIUM 9.6 mg/dL (8.5-10.1); CREATININE SERUM 1.36 mg/dL (0.55-1.02); GFR 36.95; PHOSPHOROUS 2.1 mg/dL (2.5-4.9); POTASSIUM 3.6 mEq/L (3.5-5.1)
[2024-04-28] MEDS ORDERED: MEGESTROL ACETATE 400 MG/10 ML BLIST PACK PO SCH (09:00)
[2024-04-29] VITALS (8 sets, daily range): BP systolic 123–158; BP diastolic 64–66; O2SAT 90–100
[2024-04-29 05:08] LABS: HEMATOCRIT 24.1 % (36.0-45.00); MEAN CELL VOLUME 83.3 fL (80.00-100.00); MEAN CORPUSCULAR HGB CONC 33.6 g/dl (32.0-36.0); PLATELET COUNT 244 K/uL (150-450); RED CELL DISTRIBUTION WIDTH 15.5 % (11.5-14.5)
[2024-04-29 05:32] LABS: HEMOGLOBIN 8.1 g/dL (12.0-15.00); MEAN CORPUSCULAR HEMOGLOBIN 27.9 pg (27.00-32.0)
[2024-04-29 05:49] LABS: ALBUMIN 2.1 gm/dL (3.4-5.0); BILIRUBIN TOTAL 0.22 mg/dL (0.3-1.2); CALCIUM 9.3 mg/dL (8.5-10.1); CREATININE SERUM 1.21 mg/dL (0.55-1.02); GFR 42.29; GLOBULINA 3.6 G/DL (2.4-3.5); MAGNESIUM 1.7 mg/dL (1.8-2.4); POTASSIUM 3.46 mEq/L (3.5-5.1); TOTAL PROTEIN 5.7 gm/dL (6.4-8.2)
[2024-04-29 06:10] LABS: C-REACTIVE PROTEIN 5.87 MG/DL (0.00-0.29); PHOSPHOROUS 1.7 mg/dL (2.5-4.9)
[2024-04-29] MEDS ORDERED: NAPH,MB-DB/K PH,MBDB 1 PKT PACKET PO SCH (17:00)
[2024-04-30] VITALS (9 sets, daily range): BP systolic 131–159; BP diastolic 69–76; O2SAT 96–100
[2024-04-30] MEDS ORDERED: FUROsemide 40 MG/4 ML VIAL IV SCH (08:45)
[2024-04-30 10:13] LABS: INR 1.07
[2024-04-30 10:15] LABS: PROTHROMBIN TIME 11.6 SECONDS (9.0-11.5)
[2024-05-01] VITALS (9 sets, daily range): BP systolic 144–185; BP diastolic 75–97; O2SAT 96–98
[2024-05-01 06:11] LABS: HEMATOCRIT 29.4 % (36.0-45.00); MEAN CELL VOLUME 85.3 fL (80.00-100.00); MEAN CORPUSCULAR HEMOGLOBIN 28.6 pg (27.00-32.0); MEAN CORPUSCULAR HGB CONC 33.5 g/dl (32.0-36.0); PLATELET COUNT 279 K/uL (150-450); RED BLOOD COUNT 3.45 M/uL (4.00-6.00); RED CELL DISTRIBUTION WIDTH 15.8 % (11.5-14.5)
[2024-05-01 06:24] LABS: HEMOGLOBIN 9.9 g/dL (12.0-15.00)
[2024-05-01 11:59] LABS: COL EPI 171 SECONDS (82-175)
[2024-05-01] MEDS ORDERED: IOVERSOL 320 MG/ML - 50 ML VIAL IV ONE (19:30)
[2024-05-01] MEDS ORDERED: CHLORHEXIDINE GLUCONATE 120 ML BOTTLE TOP ONE (19:30)
[2024-05-01] MEDS ORDERED: LIDOCAINE HCL 1% 10ML VIAL IJ ONE (19:30)
[2024-05-02] VITALS (9 sets, daily range): BP systolic 136–144; BP diastolic 75–76; O2SAT 95–99
[2024-05-02 06:38] LABS: HEMATOCRIT 30.2 % (36.0-45.00); HEMOGLOBIN 10.4 g/dL (12.0-15.00); MEAN CELL VOLUME 84.1 fL (80.00-100.00); MEAN CORPUSCULAR HGB CONC 34.5 g/dl (32.0-36.0); PLATELET COUNT 296 K/uL (150-450); RED BLOOD COUNT 3.59 M/uL (4.00-6.00); RED CELL DISTRIBUTION WIDTH 16.1 % (11.5-14.5)
[2024-05-02 07:17] LABS: ALBUMIN 2.1 gm/dL (3.4-5.0); BILIRUBIN TOTAL 0.37 mg/dL (0.3-1.2); CALCIUM 9.9 mg/dL (8.5-10.1); CREATININE SERUM 1.16 mg/dL (0.55-1.02); GFR 44.4; POTASSIUM 4.2 mEq/L (3.5-5.1); TOTAL PROTEIN 6.1 gm/dL (6.4-8.2)
[2024-05-02] MEDS ORDERED: MEGESTROL ACETATE 400 MG/10 ML BLIST PACK PO SCH (20:30)
[2024-05-03] VITALS (9 sets, daily range): BP systolic 133–153; BP diastolic 76–80; O2SAT 94–97
[2024-05-04] VITALS (8 sets, daily range): BP systolic 137–146; BP diastolic 73–77; O2SAT 95–99
[2024-05-05] VITALS (9 sets, daily range): BP systolic 140–148; BP diastolic 60–77; O2SAT 90–98
[2024-05-05 06:13] LABS: HEMATOCRIT 27.7 % (36.0-45.00); HEMOGLOBIN 9.4 g/dL (12.0-15.00); MEAN CELL VOLUME 86.2 fL (80.00-100.00); MEAN CORPUSCULAR HEMOGLOBIN 29.1 pg (27.00-32.0); MEAN CORPUSCULAR HGB CONC 33.8 g/dl (32.0-36.0); PLATELET COUNT 282 K/uL (150-450); RED BLOOD COUNT 3.21 M/uL (4.00-6.00)
[2024-05-05 07:06] LABS: CALCIUM 9.9 mg/dL (8.5-10.1); CREATININE SERUM 1.09 mg/dL (0.55-1.02); GFR 47.71; POTASSIUM 4.25 mEq/L (3.5-5.1)
[2024-05-05 08:00] LABS: PHOSPHOROUS 1.9 mg/dL (2.5-4.9)
[2024-05-05] MEDS ORDERED: POTASSIUM PHOS,M-BASIC-D-BASIC 3 MM/ML VIAL IV NR (09:00)
[2024-05-05 12:09] LABS: ABG PH 7.432 (7.35-7.45); ABG PO2 86.5 mmHg (80-100); ABG pCO2 28.5 mmHg (35-45); BASE EXCESS -4.1 mmol/l; BICARBONATE 18.6 mmol/l (23-25); SaO2 96.8 %; Tco2 19.5 mmol/l
[2024-05-05 12:10] LABS: o2 21 %
[2024-05-05 12:11] LABS: allen test SATISFACTORY; puncture site RADIAL RIGHT
[2024-05-06 03:01] VITALS: BP 150/82; O2SAT 96
[2024-05-06 06:06] VITALS: O2SAT 95
[2024-05-06 06:09] LABS: HEMATOCRIT 27.7 % (36.0-45.00); HEMOGLOBIN 9.2 g/dL (12.0-15.00); MEAN CORPUSCULAR HEMOGLOBIN 28.8 pg (27.00-32.0); MEAN CORPUSCULAR HGB CONC 33.1 g/dl (32.0-36.0); PLATELET COUNT 272 K/uL (150-450); RED BLOOD COUNT 3.18 M/uL (4.00-6.00); RED CELL DISTRIBUTION WIDTH 16.9 % (11.5-14.5)
[2024-05-06 07:14] LABS: ALBUMIN 2.1 gm/dL (3.4-5.0); BILIRUBIN TOTAL 0.25 mg/dL (0.3-1.2); CALCIUM 9.9 mg/dL (8.5-10.1); CREATININE SERUM 1.09 mg/dL (0.55-1.02); GFR 47.71; GLOBULINA 3.8 G/DL (2.4-3.5); MAGNESIUM 1.5 mg/dL (1.8-2.4); PHOSPHOROUS 2.2 mg/dL (2.5-4.9); POTASSIUM 4.51 mEq/L (3.5-5.1); TOTAL PROTEIN 5.9 gm/dL (6.4-8.2)
[2024-05-06 08:25] VITALS: BP 149/78; O2SAT 97
[2024-05-06 10:02] VITALS: O2SAT 92
[2024-05-06 13:10] VITALS: O2SAT 97
[2024-05-06] MEDS ORDERED: NAPH,MB-DB/K PH,MBDB 1 PKT PACKET PO STA (14:54)
[2024-05-06] MEDS ORDERED: MAGNESIUM CHLORIDE 70 MG TABLET.DR PO STA (14:55)
[2024-05-06] MEDS ORDERED: APIXABAN 2.5 MG TABLET PO SCH (17:00)
[2024-05-06 17:02] VITALS: O2SAT 97
== END 2024-05-06 18:04 | DRG 689 ==
LOC: ER 14:31 → MEDJ 23:29 → SEC-K 23:29 → MEDJ 04-24 02:30
PROVIDERS: General Practice; Internal Medicine; Internal Medicine Infectious Disease; Internal Medicine Nephrology; Internal Medicine Pulmonary Disease; Radiology Vascular & Interventional Radiology; ADMIT Internal Medicine; ATTEND Internal Medicine
PROC: BW24YZZ Computerized Tomography (CT Scan) of Chest and Abdomen using Other Contrast (ICD-10-PCS; 2024-04-24)
PROC: B54DZZZ Ultrasonography of Bilateral Lower Extremity Veins (ICD-10-PCS; 2024-04-25)
PROC: B345ZZZ Ultrasonography of Bilateral Common Carotid Arteries (ICD-10-PCS; 2024-04-25)
PROC: 4A12X4Z Monitoring of Cardiac Electrical Activity, External Approach (ICD-10-PCS; 2024-04-25)
PROC: 30233N1 Transfusion of Nonautologous Red Blood Cells into Peripheral Vein, Percutaneous Approach (ICD-10-PCS; 2024-04-30)
PROC: 06H03DZ Insertion of Intraluminal Device into Inferior Vena Cava, Percutaneous Approach (ICD-10-PCS; principal; 2024-05-01 20:15)
DX: N39.0 Urinary tract infection, site not specified (principal); I26.99 Other pulmonary embolism without acute cor pulmonale; I63.9 Cerebral infarction, unspecified; N17.9 Acute kidney failure, unspecified; K92.2 Gastrointestinal hemorrhage, unspecified; E87.20 Acidosis, unspecified; I82.401 Acute embolism and thrombosis of unspecified deep veins of right lower extremity; I50.9 Heart failure, unspecified; G30.9 Alzheimer's disease, unspecified; F02.80 Dementia in other diseases classified elsewhere, unspecified severity, without behavioral disturbance, psychotic disturbance, mood disturbance, and anxiety; I10 Essential (primary) hypertension; E03.9 Hypothyroidism, unspecified; R09.02 Hypoxemia; D64.9 Anemia, unspecified; E11.9 Type 2 diabetes mellitus without complications; Z79.4 Long term (current) use of insulin; I25.10 Atherosclerotic heart disease of native coronary artery without angina pectoris

== ENCOUNTER → 2024-09-18 08:28 | Outpatient (CLI) | payer OTHER | END | disposition home or self-care (01) | LOC: NUCLEAR 08:28 | PROVIDERS: ATTEND Internal Medicine Pulmonary Disease | DX: I26.99 Other pulmonary embolism without acute cor pulmonale (principal) | CPT/HCPCS: 78582; A9540; A9567 ==

== ENCOUNTER 2024-09-30 11:21 | Outpatient (CLI) | payer OTHER | END 2024-10-01 11:28 | disposition home or self-care (01) | LOC: NUCLEAR 11:21 | PROVIDERS: ATTEND Internal Medicine | DX: I26.99 Other pulmonary embolism without acute cor pulmonale (principal) | CPT/HCPCS: 78582; A9540; A9567 ==